=== PATIENT | male | born 1970 | race Caucasian/White ===

== ENCOUNTER 2017-06-30 15:03 | Emergency (ER) | payer OTHER ==
[2017-06-30] MEDS: KETOROLAC 60 MG INJ IM (16:16)
== END 2017-06-30 16:34 | disposition home or self-care (01) ==
LOC: FTE 15:03
DX: M54.12 Radiculopathy, cervical region (principal)
CPT/HCPCS: 96372; 99284-25

== ENCOUNTER 2017-11-24 18:39 | Emergency (ER) | payer OTHER ==
[2017-11-24] MEDS: DEXAMETHASONE 10 MG/ML 1 ML INJ IM (19:51)
== END 2017-11-24 20:38 | disposition home or self-care (01) ==
LOC: FTE 18:39
DX: L50.9 Urticaria, unspecified (principal)
CPT/HCPCS: 96372; 99284-25

== ENCOUNTER 2017-11-26 10:46 | Emergency (ER) | payer OTHER ==
[2017-11-26] MEDS: predniSONE 20 MG TAB PO (11:32)
== END 2017-11-26 12:56 | disposition home or self-care (01) ==
LOC: FTE 10:46
DX: R21 Rash and other nonspecific skin eruption (principal)
CPT/HCPCS: 99283; J7512

== ENCOUNTER 2017-12-23 15:38 | Emergency (ER) | payer OTHER | END 2017-12-23 16:46 | disposition home or self-care (01) | LOC: FTE 15:38 | DX: S39.012A Strain of muscle, fascia and tendon of lower back, initial encounter (principal); X58.XXXA Exposure to other specified factors, initial encounter; Y92.89 Other specified places as the place of occurrence of the external cause | CPT/HCPCS: 99283; Z7502 ==